=== PATIENT | female | born 1960 | race Caucasian/White ===

== ENCOUNTER 2017-08-11 10:46 | Day surgery (SDC) | payer OTHER ==
[~2017-08-11 10:46] MED LIST: LIDOCAINE 1% PF 2 ML VIAL. ID; PROCHLORPERAZINE 10 MG/2 ML VIAL. IV; fentaNYL PF VIAL 100 MCG/2 ML VIAL IV
[2017-08-11] MEDS: IV RINGERS,LACTATED 1000ML 1,000 ML IV (11:15)
[2017-08-11] MEDS ORDERED: LIDOCAINE 2% PF Vial for OR 5 ML VIAL. (11:49)
[2017-08-11] MEDS ORDERED: PROPOFOL 20 ML IV (11:49)
[2017-08-11] MEDS ORDERED: fentaNYL PF VIAL 100 MCG/2 ML VIAL ×4 (11:51→14:36)
[2017-08-11] MEDS ORDERED: MIDAZOLAM HCL/PF 2 MG/2 ML VIAL. (11:52)
[2017-08-11] MEDS ORDERED: SCOPOLAMINE 1.5MG PATCH. TD (12:38)
[2017-08-11] MEDS: SCOPOLAMINE 1.5MG PATCH. TD (12:43)
[2017-08-11] MEDS ORDERED: DEXAMETHASONE SOD PHOS 20 MG/5 ML VIAL. (12:52)
[2017-08-11] MEDS ORDERED: ONDANSETRON PF 4 MG/2 ML VIAL. (12:52)
[2017-08-11] MEDS ORDERED: FAMOTIDINE 20 MG/2 ML VIAL (12:53)
[2017-08-11] MEDS ORDERED: ePHEDrine PF IN SALINE 50 MG/5 ML DISP.SYRIN IV (13:17)
[2017-08-11] MEDS: LIDOCAINE 1% 20 ML VIAL. (13:21)
[2017-08-11] MEDS ORDERED: SEVOFLURANE 31 TO 60 MINUTES. IH (13:46)
[2017-08-11] MEDS: fentaNYL PF VIAL 100 MCG/2 ML VIAL IV ×4 (14:22→14:51)
[2017-08-11] MEDS: HYDROcodone/APAP 10/325 1 TAB TABLET PO (14:39)
[2017-08-11] MEDS ORDERED: PROCHLORPERAZINE 10 MG/2 ML VIAL. (15:08)
== END 2017-08-11 15:43 | disposition home or self-care (01) ==
LOC: SURG 10:46
DX: G56.02 Carpal tunnel syndrome, left upper limb (principal); M65.332 Trigger finger, left middle finger; I10 Essential (primary) hypertension; K21.9 Gastro-esophageal reflux disease without esophagitis; F32.9 Major depressive disorder, single episode, unspecified; F41.9 Anxiety disorder, unspecified; Z88.6 Allergy status to analgesic agent; Z88.1 Allergy status to other antibiotic agents; Z98.890 Other specified postprocedural states; Z86.73 Personal history of transient ischemic attack (TIA), and cerebral infarction without residual deficits; Z90.49 Acquired absence of other specified parts of digestive tract; Z90.710 Acquired absence of both cervix and uterus; Z87.442 Personal history of urinary calculi; Z87.440 Personal history of urinary (tract) infections; Z88.8 Allergy status to other drugs, medicaments and biological substances; Z79.899 Other long term (current) drug therapy; Z87.891 Personal history of nicotine dependence
CPT/HCPCS: 26055; C1769; J0690; J0780; J1100; J2250; J2405; J2704; J3010; S0028

== ENCOUNTER → 2018-01-20 | Day surgery (SDC) | payer OTHER ==
[~2018-01-20] MED LIST changes: +CELE-20 PO; +CITA20TA6 PO; +DULO60CA44 PO; +GABA300C8; +HYDR-2766 PO; +IBUP800T19 PO; +IV NORMAL SALINE 1000ML BAG 1,000 ML IV SCH; +IV RINGERS,LACTATED 1000ML 1,000 ML IV SCH; -LIDOCAINE 1% PF 2 ML VIAL. ID; +LISI-334 PO; +MULT1TAB52 PO; +OXYC-411; -PROCHLORPERAZINE 10 MG/2 ML VIAL. IV; +PROPOFOL 20 ML IV ONE; +PROPOFOL 60 ML IV ONE; +ZOLP10TA PO; -fentaNYL PF VIAL 100 MCG/2 ML VIAL IV
[2018-01-20 08:36] VITALS: BP 134/78
--- NOTE | 2018-01-22 10:09 | PATHOLOGY ---
[facility] Accession Number: [id number] . 01 Material submitted: . PART A: DISTAL ESOPHAGEAL BIOPSY PART B: RANDOM COLON BIOPSY PART C: BIOPSY SIGMOID COLON POLYPS . 01 Clinical history: . Diarrhea, dysphagia, history of polyps . 02 Diagnosis: A. Esophageal biopsies, distal esophagus: - Segments of hyperplastic squamous esophageal mucosa consistent with reflux esophagitis. . B. Random colon biopsies: - No significant pathologic abnormalities. . C. Colon biopsies, sigmoid colon polyps: - Hyperplastic polyps. LBQ/01/21/2018 . 02 Comment: Sections of the distal esophageal biopsy reveal segments of hyperplastic squamous esophageal mucosa consistent with reflux esophagitis. There is no evidence of Zamora's change, dysplasia, or malignancy. Sections of the random colon biopsy reveal multiple segments of colonic mucosa. There is no evidence of a chronic destructive colitis, lymphocytic colitis, or collagenous colitis. Sections of the sigmoid colon biopsies reveal hyperplastic polyps. There are no adenomatous changes or evidence of malignancy. (JPM/db; 01/21/18) . 02 Electronically signed: . Familia Leo MD, Pathologist NPI- [id number] . 01 Gross description: . A. The specimen is received in formalin, labeled "Leny, Nighat, distal esophageal BX" and consists of a few fragments of soft jones tissue measuring 0.9 x 0.3 x 0.1 cm in aggregate. They are entirely submitted in A1. . B. The specimen is received in formalin, labeled "Leny, Nighat, random colon BX" and consists of multiple fragments of soft jones tissue measuring 2.0 x 0.6 x 0.2 cm in aggregate. They are entirely submitted in B1. . C. The specimen is received in formalin, labeled "Leny, Nighat, BX sigmoid colon polyps" and consists of 2 fragments of soft jones tissue measuring 0.5 x 0.3 x 0.1 cm and 0.1 x 0.1 x 0.1 cm. They are entirely submitted in C1. (SDY; 01/20/2018) SYU/SYU . 02 Pathologist provided ICD-10: K21.0, K63.5 . 02 CPT . 553366, 227014, [id number] Performed at: 01 [facility] [address], [place] [id number] MD Andrei Boyd MD Phone: [phone] Performed at: 02 [facility] [address] [place], [place] [id number] MD Familia Leo MD Phone: [phone]
== END | disposition home or self-care (01) ==
LOC: ENDOS 06:36
PROVIDERS: ATTEND Internal Medicine Gastroenterology
DX: K57.30 Diverticulosis of large intestine without perforation or abscess without bleeding (principal); K64.0 First degree hemorrhoids; K63.5 Polyp of colon; K21.0 Gastro-esophageal reflux disease with esophagitis; K29.50 Unspecified chronic gastritis without bleeding; J38.5 Laryngeal spasm; I10 Essential (primary) hypertension; F41.9 Anxiety disorder, unspecified; F32.9 Major depressive disorder, single episode, unspecified; Z88.1 Allergy status to other antibiotic agents; Z88.5 Allergy status to narcotic agent; Z98.890 Other specified postprocedural states; Z86.73 Personal history of transient ischemic attack (TIA), and cerebral infarction without residual deficits; Z86.010 Personal history of colon polyps; Z90.49 Acquired absence of other specified parts of digestive tract; Z90.710 Acquired absence of both cervix and uterus; Z98.51 Tubal ligation status; Z90.79 Acquired absence of other genital organ(s); Z90.721 Acquired absence of ovaries, unilateral; Z87.442 Personal history of urinary calculi; Z87.440 Personal history of urinary (tract) infections; M19.90 Unspecified osteoarthritis, unspecified site; Z72.89 Other problems related to lifestyle; F17.200 Nicotine dependence, unspecified, uncomplicated; Z79.899 Other long term (current) drug therapy
CPT/HCPCS: 43239; 43450; 45380; 88305; J2704; 45385